=== PATIENT | female | born 1955 | race Caucasian/White ===

== ENCOUNTER 2017-04-13 11:37 | Emergency (ER) | payer BC ==
[~2017-04-13] VITALS: Ht 180.3 cm; Wt 78.9 kg
[~2017-04-13 11:37] MED LIST: ADVAIR 500/501 DISK IH; BONIVA150 MG PO; FLOVENT; SINGULAIR10 MG PO
[2017-04-13 12:45] LABS: HEMATOCRIT 41.3 % (36.0-46.0); MCH 29.7 PG (29.0-34.0); MCHC 33.4 G/DL (30.0-36.0); MEAN PLAT.VOLUME 11.2 uM^3 (9.5-12.4); PLATELET COUNT 270 K/uL (156-360); RBC DIS.WIDTH-CV 13.1 % (11.8-14.6); RBC DIS.WIDTH-SD 42.9 % (39-53); RED BLOOD COUNT 4.64 M/uL (3.80-5.20)
[2017-04-13 12:55] LABS: CHLORIDE 109 mEq/L (99-109); POTASSIUM 3.9 mEq/L (3.7-5.4); SODIUM 142 mEq/L (136-147)
[2017-04-13 12:57] LABS: GLUCOSE 97 mg/dL (70-99)
[2017-04-13 12:58] LABS: ANION GAP 9 MEQ/L (2-14)
[2017-04-13 13:01] LABS: GFR ESTIMATE (CALCULATED) > 59 mL/min/
[2017-04-13 13:02] LABS: UREA NITROGEN (BUN) 6 mg/dL (9-23)
[2017-04-13 13:06] LABS: TROP-I INTERPRETATION NEGATIVE; TROPONIN-I < 0.01 ng/mL (0.0-0.30)
[2017-04-13 15:52] LABS: TROP-I INTERPRETATION NEGATIVE; TROPONIN-I < 0.01 ng/mL (0.0-0.30)
[2017-04-13 16:50] VITALS: BP 136/66
== END 2017-04-13 17:15 | disposition home or self-care (01) ==
LOC: EME 11:37
PROVIDERS: Emergency Medicine
DX: R07.89 Other chest pain (principal); R20.2 Paresthesia of skin; J45.909 Unspecified asthma, uncomplicated
CPT/HCPCS: 70450; 71020; 80048; 84484; 85027; 93005; 99281; 99284